=== PATIENT | female | born 1960 | race Caucasian/White ===

== ENCOUNTER 2018-02-15 15:01 | Emergency (ER) | payer MEDICARE, MEDICAID, OTHER ==
[~2018-02-15] VITALS: Ht 160 cm; Wt 90.0 kg
[~2018-02-15 15:01] MED LIST: ALBU8.5H8 INH; ASPI-611 PO; ATOR80TA PO; ESCI20TA PO; FAMO20TA41 PO; NABU500T2 PO; NYST15PO4 TOP; TOLT4CAP PO
[2018-02-15 15:07] VITALS: BP 173/97
== END 2018-02-15 15:36 | disposition home or self-care (01) ==
LOC: ER 15:02
DX: S50.861A Insect bite (nonvenomous) of right forearm, initial encounter (principal); I10 Essential (primary) hypertension; J45.909 Unspecified asthma, uncomplicated; K21.9 Gastro-esophageal reflux disease without esophagitis; E11.9 Type 2 diabetes mellitus without complications; F12.90 Cannabis use, unspecified, uncomplicated; Z90.49 Acquired absence of other specified parts of digestive tract; Z86.73 Personal history of transient ischemic attack (TIA), and cerebral infarction without residual deficits; Z88.0 Allergy status to penicillin; Z88.1 Allergy status to other antibiotic agents; Z79.82 Long term (current) use of aspirin; Z79.899 Other long term (current) drug therapy; W57.XXXA Bitten or stung by nonvenomous insect and other nonvenomous arthropods, initial encounter; Y93.89 Activity, other specified; Y92.89 Other specified places as the place of occurrence of the external cause; Y99.8 Other external cause status
CPT/HCPCS: 99281

== ENCOUNTER 2018-11-07 12:24 | Emergency (ER) | payer MEDICARE, MEDICAID, OTHER ==
[~2018-11-07] VITALS: Ht 160 cm; Wt 90.0 kg
[~2018-11-07 12:24] MED LIST changes: +INSU100V12 SQ
[2018-11-07 12:36] VITALS: BP 128/84
[2018-11-07 15:16] LABS: BASOPHILS % (AUTO) 0.2 % (0-1); EOSINOPHILS % (AUTO) 0.2 % (0-6); HEMATOCRIT 38.8 % (35.0-45.0); HEMOGLOBIN 12.5 g/dl (12.0-16.0); LYMPHOCYTES # (AUTO) 1.8 X10'3 (1.1-4.8); LYMPHOCYTES % (AUTO) 11.3 % (21-51); MEAN CORPUSCULAR HEMOGLOBIN 26.6 PG (27.0-31.0); MEAN CORPUSCULAR HGB CONC 32.3 g/dL (33.0-36.5); MEAN CORPUSCULAR VOLUME 82.5 FL (78-98); MEAN PLATELET VOLUME 7.3 FL (7.4-10.4); MONOCYTES # (AUTO) 0.5 X10'3 (0-0.9); MONOCYTES % (AUTO) 3.1 % (2-12); NEUTROPHILS # (AUTO) 13.8 X10'3 (1.8-7.7); NEUTROPHILS % (AUTO) 85.2 % (42-75); PLATELET COUNT 391 X10'3 (140-440); RED BLOOD COUNT 4.71 X10'6 (4.20-5.60); WHITE BLOOD COUNT 16.3 X10'3 (4.5-11.0)
[2018-11-07 15:31] LABS: ALANINE AMINOTRANSFERASE 23 U/L (12-78); ALBUMIN 3.3 G/DL (3.4-5.0); ALBUMIN/GLOBULIN RATIO 0.7 (1.1-1.5); ALKALINE PHOSPHATASE 119 IU/L (46-116); ANION GAP 16 (8-16); ASPARTATE AMINO TRANSFERASE 18 U/L (10-37); BILIRUBIN,TOTAL 0.2 MG/DL (0.1-1.0); BLOOD UREA NITROGEN 18 MG/DL (7-18); BUN/CREATININE RATIO 13.5 (6.6-38.0); CALCIUM 9.4 MG/DL (8.5-10.1); CHLORIDE 100 MMOL/L (99-107); CREATININE 1.33 MG/DL (0.40-0.90); GLUCOSE 217 MG/DL (70-104); POTASSIUM 4.1 MMOL/L (3.5-5.1); SODIUM 136 MMOL/L (135-145); TOTAL CARBON DIOXIDE 20.2 MMOL/L (24-32); TOTAL PROTEIN 7.8 G/DL (6.4-8.2); eGFR 41 ML/MIN
== END 2018-11-07 16:25 | disposition home or self-care (01) ==
LOC: ER 12:26
DX: R55 Syncope and collapse (principal); D72.829 Elevated white blood cell count, unspecified; E11.65 Type 2 diabetes mellitus with hyperglycemia; I10 Essential (primary) hypertension; J45.909 Unspecified asthma, uncomplicated; K21.9 Gastro-esophageal reflux disease without esophagitis; F32.9 Major depressive disorder, single episode, unspecified; F12.90 Cannabis use, unspecified, uncomplicated; Z88.0 Allergy status to penicillin; Z86.73 Personal history of transient ischemic attack (TIA), and cerebral infarction without residual deficits; Z90.49 Acquired absence of other specified parts of digestive tract; Z88.1 Allergy status to other antibiotic agents; Z79.82 Long term (current) use of aspirin; Z79.4 Long term (current) use of insulin; Z79.899 Other long term (current) drug therapy
CPT/HCPCS: 36415; 71045; 80053; 85025; 93005; 99284

== ENCOUNTER 2019-02-19 18:04 | Emergency (ER) | payer MEDICARE, MEDICAID, OTHER ==
[~2019-02-19] VITALS: Ht 160 cm; Wt 72.7 kg
--- NOTE | 2019-02-19 18:22 | NUR ---
PATIENT LIVES AT HOME WITH HER BROTHER WHO IS ALSO DEVELOPMENTALLY DELAYED AND THEY HAVE 24/7 CARE. HER CAREGIVER IS AT BEDSIDE
[2019-02-19 19:20] VITALS: BP 160/88
== END 2019-02-19 19:23 | disposition home or self-care (01) ==
LOC: ER 18:05
DX: T17.828A Food in other parts of respiratory tract causing other injury, initial encounter (principal); R62.50 Unspecified lack of expected normal physiological development in childhood; I10 Essential (primary) hypertension; K21.9 Gastro-esophageal reflux disease without esophagitis; E11.9 Type 2 diabetes mellitus without complications; F32.9 Major depressive disorder, single episode, unspecified; F12.90 Cannabis use, unspecified, uncomplicated; Z86.73 Personal history of transient ischemic attack (TIA), and cerebral infarction without residual deficits; Z90.49 Acquired absence of other specified parts of digestive tract; Z88.0 Allergy status to penicillin; Z88.1 Allergy status to other antibiotic agents; Z79.82 Long term (current) use of aspirin; Z79.899 Other long term (current) drug therapy; X58.XXXA Exposure to other specified factors, initial encounter; Y93.89 Activity, other specified; Y92.89 Other specified places as the place of occurrence of the external cause; Y99.8 Other external cause status
CPT/HCPCS: 71045; 99284

== ENCOUNTER 2020-06-14 20:56 | Inpatient (IN) | payer MEDICARE, MEDICAID, OTHER ==
[~2020-06-14] VITALS: Ht 157.5 cm; Wt 70.5 kg
[~2020-06-14 20:56] MED LIST changes: +NABU-134 PO; -NABU500T2 PO
[2020-06-14] MEDS ORDERED: normal saline 1000ml 1,000 ML IV ONE (21:25)
[2020-06-14 22:19] LABS: BASOPHILS % (AUTO) 0.1 % (0-1); EOSINOPHILS % (AUTO) 0 % (0-6); HEMATOCRIT 41.2 % (35.0-45.0); HEMOGLOBIN 13.2 g/dl (12.0-16.0); LYMPHOCYTES # (AUTO) 1.2 X10'3 (1.1-4.8); LYMPHOCYTES % (AUTO) 5.1 % (21-51); MEAN CORPUSCULAR HEMOGLOBIN 27.9 PG (27.0-31.0); MEAN CORPUSCULAR VOLUME 87.3 FL (78-98); MEAN PLATELET VOLUME 8.1 FL (7.4-10.4); MONOCYTES # (AUTO) 0.7 X10'3 (0-0.9); MONOCYTES % (AUTO) 3.1 % (2-12); NEUTROPHILS # (AUTO) 20.8 X10'3 (1.8-7.7); NEUTROPHILS % (AUTO) 91.7 % (42-75); PLATELET COUNT 309 X10'3 (140-440); RED BLOOD COUNT 4.73 X10'6 (4.20-5.60); RED CELL DISTRIBUTION WIDTH 15.3 % (11.5-14.5); WHITE BLOOD COUNT 22.7 X10'3 (4.5-11.0)
[2020-06-14 22:22] LABS: ALANINE AMINOTRANSFERASE 20 U/L (12-78); ALBUMIN 3.3 G/DL (3.4-5.0); ALBUMIN/GLOBULIN RATIO 0.8 (1.1-1.5); ALKALINE PHOSPHATASE 103 IU/L (46-116); ANION GAP 15 (8-16); ASPARTATE AMINO TRANSFERASE 16 U/L (10-37); BILIRUBIN,TOTAL 0.3 MG/DL (0.1-1.0); BLOOD UREA NITROGEN 25 MG/DL (7-18); BUN/CREATININE RATIO 20.3 (6.6-38.0); CALCIUM 9.2 MG/DL (8.5-10.1); CHLORIDE 102 MMOL/L (99-107); CREATININE 1.23 MG/DL (0.40-0.90); GLUCOSE 234 MG/DL (70-104); POTASSIUM 4.3 MMOL/L (3.5-5.1); SODIUM 139 MMOL/L (135-145); TOTAL CARBON DIOXIDE 22.1 MMOL/L (24-32); TOTAL PROTEIN 7.7 G/DL (6.4-8.2); eGFR 45 ML/MIN
[2020-06-14] MEDS ORDERED: normal saline 1000ML IV soln IV ONE (22:45)
[2020-06-14 23:03] LABS: PLATELET ESTIMATE NORMAL; TOTAL CELLS COUNTED 100
[2020-06-14] MEDS ORDERED: magnesium Cl slow-release 64mg tablet PO PRN (23:10)
[2020-06-14] MEDS ORDERED: insulin Lispro (HumaLOG) vial - multi-dose SQ SCH (23:10)
[2020-06-14] MEDS ORDERED: dextrose ORAL solution 15 GM/59 ML bottle PO PRN ×2 (23:10)
[2020-06-14] MEDS ORDERED: mag hydrox/Alum hydrox/simeth 30ml oral suspension PO PRN (23:10)
[2020-06-14] MEDS ORDERED: magnesium 2GM in 50ml NS 50 ML IV PRN (23:10)
[2020-06-14] MEDS ORDERED: glucagon, human recombinant 1mg kit SUBCUT PRN (23:10)
[2020-06-14] MEDS ORDERED: MESSAGE TO PHARMACY PO ONE (23:10)
[2020-06-14] MEDS ORDERED: potassium Cl 20 mEq SR tablet PO PRN ×2 (23:10)
[2020-06-14] MEDS ORDERED: potassium CL 10mEq/100ml bag 100 ML IV PRN ×2 (23:10)
[2020-06-14] MEDS ORDERED: dextrose 50%-water 50ml dispensing syringe IV PRN ×2 (23:10)
[2020-06-14] MEDS ORDERED: magnesium 4gm in 100ml NS 100 ML IV PRN (23:10)
[2020-06-14] MEDS ORDERED: ondansetron/PF 4mg/2ml inj IV PRN (23:10)
[2020-06-14] MEDS ORDERED: magnesium hydroxide 30ml (MOM) UD suspension PO PRN (23:10)
[2020-06-14] MEDS ORDERED: acetaminophen 325mg tablet PO PRN ×2 (23:10)
[2020-06-14] MEDS ORDERED: LORazepam 2 mg/ml vial IV ONE (23:20)
[2020-06-14] MEDS ORDERED: azithromycin/NS 500mg/250ml 250 ML IV ONE (23:30)
[2020-06-14] MEDS ORDERED: LORazepam 0.5 MG tablet PO PRN (23:30)
[2020-06-14] MEDS ORDERED: CefTRIAXone/D5W-Rocephin 1gm 50 ML IV ONE (23:30)
[2020-06-15] MEDS: normal saline 1000ml 1,000 ML IV SCH ×3 (00:09→16:59)
[2020-06-15] MEDS: enoxaparin 60mg/0.6ml syringe SUBCUT SCH ×2 (03:41→07:19)
[2020-06-15 05:25] VITALS: BP 110/89
[2020-06-15] MEDS: docusate sod 100mg capsule PO SCH ×2 (07:19→21:07)
[2020-06-15] MEDS: azithromycin/NS 500mg/250ml 250 ML IV SCH (07:19)
[2020-06-15 07:31] VITALS: BP 150/67
[2020-06-15 07:39] LABS: BASOPHILS # (AUTO) 0.1 X10'3 (0-0.2); BASOPHILS % (AUTO) 0.6 % (0-1); EOSINOPHILS % (AUTO) 0.1 % (0-6); HEMATOCRIT 32.9 % (35.0-45.0); HEMOGLOBIN 10.7 g/dl (12.0-16.0); LYMPHOCYTES # (AUTO) 3.3 X10'3 (1.1-4.8); LYMPHOCYTES % (AUTO) 17.1 % (21-51); MEAN CORPUSCULAR HGB CONC 32.5 g/dL (33.0-36.5); MEAN CORPUSCULAR VOLUME 89.3 FL (78-98); MEAN PLATELET VOLUME 7.9 FL (7.4-10.4); MONOCYTES # (AUTO) 0.8 X10'3 (0-0.9); MONOCYTES % (AUTO) 4.1 % (2-12); NEUTROPHILS # (AUTO) 15.1 X10'3 (1.8-7.7); NEUTROPHILS % (AUTO) 78.1 % (42-75); PLATELET COUNT 234 X10'3 (140-440); RED BLOOD COUNT 3.69 X10'6 (4.20-5.60); RED CELL DISTRIBUTION WIDTH 15.1 % (11.5-14.5); WHITE BLOOD COUNT 19.3 X10'3 (4.5-11.0)
[2020-06-15] MEDS: K and/or MAG REPLACEMENT MC SCH ×2 (08:00→20:00)
[2020-06-15 08:05] LABS: ALANINE AMINOTRANSFERASE 20 U/L (12-78); ALBUMIN 2.6 G/DL (3.4-5.0); ALBUMIN/GLOBULIN RATIO 0.7 (1.1-1.5); ALKALINE PHOSPHATASE 84 IU/L (46-116); ANION GAP 10 (8-16); ASPARTATE AMINO TRANSFERASE 17 U/L (10-37); BILIRUBIN,TOTAL 0.2 MG/DL (0.1-1.0); BLOOD UREA NITROGEN 17 MG/DL (7-18); BUN/CREATININE RATIO 19.5 (6.6-38.0); CALCIUM 9.2 MG/DL (8.5-10.1); CHLORIDE 115 MMOL/L (99-107); CREATININE 0.87 MG/DL (0.40-0.90); GLUCOSE 105 MG/DL (70-104); MAGNESIUM 1.5 MG/DL (1.5-2.4); POTASSIUM 4.1 MMOL/L (3.5-5.1); SODIUM 148 MMOL/L (135-145); TOTAL CARBON DIOXIDE 22.6 MMOL/L (24-32); TOTAL PROTEIN 6.2 G/DL (6.4-8.2); eGFR 66 ML/MIN
[2020-06-15 11:00] VITALS: BP 131/53
[2020-06-15] MEDS ORDERED: METO10TA3 PO (12:52)
[2020-06-15] MEDS ORDERED: INSU100C4 SQ (12:52)
[2020-06-15] MEDS ORDERED: SITA100T11 PO (12:52)
[2020-06-15] MEDS ORDERED: INSU100I25 SQ (12:52)
[2020-06-15] MEDS ORDERED: NOVLG SQ (12:52)
[2020-06-15] MEDS ORDERED: LEVE500T PO (12:52)
[2020-06-15] MEDS ORDERED: CLOP75TA35 PO (12:52)
[2020-06-15] MEDS ORDERED: LISI-600 PO (12:52)
[2020-06-15] MEDS ORDERED: ASPI-1397 PO (12:52)
[2020-06-15] MEDS ORDERED: ESCI20TA45 PO (12:52)
[2020-06-15] MEDS ORDERED: MULT1TAB70 PO (12:52)
[2020-06-15] MEDS ORDERED: PANT40TA54 PO (12:52)
[2020-06-15] MEDS ORDERED: ATOR20TA66 PO (12:52)
[2020-06-15] MEDS ORDERED: METF-950 PO (12:52)
[2020-06-15] MEDS: CefTRIAXone/D5W-Rocephin 1gm 50 ML IV SCH (15:27)
[2020-06-15 16:01] LABS: CLARITY,URINE CLEAR (Clear); COLOR,URINE STRAW (Yellow); GLUCOSE, URINE NEGATIVE (Neg); KETONES,URINE NEGATIVE (Neg); LEUKOCYTE ESTERASE ,URINE TRACE (Neg); NITRITES, URINE NEGATIVE (Neg); OCCULT BLOOD,URINE MODERATE (Neg); PH,URINE 5.5 (4.8-8.0); PROTEIN,URINE NEGATIVE (Neg); UROBILINOGEN,URINE 0.2 E.U/dL (0.2-1.0)
[2020-06-15 16:05] LABS: UA COLLECTION TYPE NON-SPECIFIED
[2020-06-15 16:06] LABS: BACTERIA,URINE NONE SEEN /HPF (Neg); MUCUS STRANDS FEW /LPF (Neg); RBC,URINE 0-2 /HPF (0-2); SQUAMOUS EPITHELIAL CELL,UR NONE SEEN /LPF (FEW); WBC,URINE 0-4 /HPF (0-4)
[2020-06-15] MEDS: metoclopramide 10mg tablet PO SCH ×2 (16:59→21:07)
--- NOTE | 2020-06-15 18:30 | NUR ---
Patient in room [facility]. I have received report from KAILA FRAZIER and had the opportunity to ask questions and assume patient care. Addendum: 06/15/20 at 1831 by Mariajose Berger RN Amended: Links added.
--- NOTE | 2020-06-15 18:38 | NUR ---
Problems reprioritized. Patient report given, questions answered & plan of care reviewed with STEVEN FRAZIER.
[2020-06-15 19:00] VITALS: BP 138/76
--- NOTE | 2020-06-15 19:00 | NUR ---
pt inc of urine skin care done with lien change and positioned to comfort.
[2020-06-15] MEDS: lisinopril 20mg tablet PO SCH (20:59)
[2020-06-15] MEDS: lactobacillus rhamnosus 10,000 MMU CELLS/CAPSULE PO SCH (21:00)
[2020-06-15] MEDS ORDERED: atorvastatin 20mg tablet PO SCH (21:00)
[2020-06-15] MEDS ORDERED: insulin glargine (Lantus) pen - multi-dose SQ SCH (21:00)
--- NOTE | 2020-06-15 21:00 | NUR ---
pt used bedpan then given hs medications skin care done then repositioned in bed to comfort.
[2020-06-15] MEDS: levetiracetam 250mg tablet PO SCH (21:07)
[2020-06-15] MEDS: heparin, porcine 5000 units/ml vial SQ SCH (21:08)
--- NOTE | 2020-06-15 23:15 | NUR ---
awoke used the bedpan and vitals vss. no complaints.
[2020-06-16] VITALS: BP 114/56
--- NOTE | 2020-06-16 01:00 | NUR ---
resting eyes closed without s&s of distress at this time.
[2020-06-16] MEDS: normal saline 1000ml 1,000 ML IV SCH (01:22)
--- NOTE | 2020-06-16 03:50 | NUR ---
pt awoke inc of urine skin care done with complete bed change. repositioned up in bed. tolerated well.
[2020-06-16 05:44] LABS: BASOPHILS % (AUTO) 0.5 % (0-1); EOSINOPHILS # (AUTO) 0.1 X10'3 (0-0.9); EOSINOPHILS % (AUTO) 1.3 % (0-6); HEMATOCRIT 30.6 % (35.0-45.0); HEMOGLOBIN 10.1 g/dl (12.0-16.0); LYMPHOCYTES # (AUTO) 2.6 X10'3 (1.1-4.8); LYMPHOCYTES % (AUTO) 26.3 % (21-51); MEAN CORPUSCULAR HEMOGLOBIN 29.2 PG (27.0-31.0); MEAN CORPUSCULAR HGB CONC 32.9 g/dL (33.0-36.5); MEAN CORPUSCULAR VOLUME 88.8 FL (78-98); MEAN PLATELET VOLUME 7.8 FL (7.4-10.4); MONOCYTES # (AUTO) 0.4 X10'3 (0-0.9); MONOCYTES % (AUTO) 3.9 % (2-12); NEUTROPHILS # (AUTO) 6.8 X10'3 (1.8-7.7); PLATELET COUNT 207 X10'3 (140-440); RED BLOOD COUNT 3.45 X10'6 (4.20-5.60); RED CELL DISTRIBUTION WIDTH 15.1 % (11.5-14.5); WHITE BLOOD COUNT 10.1 X10'3 (4.5-11.0)
--- NOTE | 2020-06-16 06:42 | NUR ---
Patient in room [facility]. I have received report from Mariajose FRAZIER and had the opportunity to ask questions and assume patient care.
[2020-06-16 06:50] LABS: ALANINE AMINOTRANSFERASE 19 U/L (12-78); ALBUMIN 2.7 G/DL (3.4-5.0); ALBUMIN/GLOBULIN RATIO 0.8 (1.1-1.5); ALKALINE PHOSPHATASE 74 IU/L (46-116); ANION GAP 8 (8-16); ASPARTATE AMINO TRANSFERASE 19 U/L (10-37); BILIRUBIN,TOTAL 0.3 MG/DL (0.1-1.0); BLOOD UREA NITROGEN 10 MG/DL (7-18); BUN/CREATININE RATIO 13.7 (6.6-38.0); CALCIUM 8.2 MG/DL (8.5-10.1); CHLORIDE 113 MMOL/L (99-107); CREATININE 0.73 MG/DL (0.40-0.90); GLUCOSE 108 MG/DL (70-104); MAGNESIUM 1.6 MG/DL (1.5-2.4); POTASSIUM 3.6 MMOL/L (3.5-5.1); SODIUM 146 MMOL/L (135-145); TOTAL CARBON DIOXIDE 25.3 MMOL/L (24-32); TOTAL PROTEIN 6.3 G/DL (6.4-8.2); eGFR 81 ML/MIN
[2020-06-16 07:00] VITALS: BP 144/79
[2020-06-16] MEDS: metoclopramide 10mg tablet PO SCH ×2 (07:16→12:24)
[2020-06-16] MEDS ORDERED: ESCITALOPRAM OXALATE 5 MG TABLET PO SCH (08:00)
[2020-06-16] MEDS ORDERED: multivitamins, therapeutics tablet PO SCH (08:00)
[2020-06-16] MEDS: K and/or MAG REPLACEMENT MC SCH (08:00)
[2020-06-16] MEDS ORDERED: clopidogrel 75mg tablet PO SCH (08:00)
[2020-06-16] MEDS ORDERED: pantoprazole 40mg Tablet.DR PO SCH (08:00)
[2020-06-16] MEDS ORDERED: aspirin 81mg tablet.DR PO SCH (08:00)
[2020-06-16] MEDS: CefTRIAXone/D5W-Rocephin 1gm 50 ML IV SCH (08:24)
[2020-06-16] MEDS: lactobacillus rhamnosus 10,000 MMU CELLS/CAPSULE PO SCH (08:24)
[2020-06-16] MEDS: levetiracetam 250mg tablet PO SCH (08:25)
[2020-06-16] MEDS: docusate sod 100mg capsule PO SCH (08:25)
[2020-06-16] MEDS: lisinopril 20mg tablet PO SCH (08:26)
[2020-06-16] MEDS: heparin, porcine 5000 units/ml vial SQ SCH (08:26)
[2020-06-16] MEDS: azithromycin/NS 500mg/250ml 250 ML IV SCH (09:58)
[2020-06-16 12:00] VITALS: BP 138/56
[2020-06-16] MEDS ORDERED: ALBU8.5H8 INH (13:28)
[2020-06-16] MEDS ORDERED: AZIT500T9 PO (13:28)
[2020-06-16] MEDS ORDERED: CEFD300C3 PO (13:28)
--- NOTE | 2020-06-16 15:48 | NUR ---
DM Consult: A1C less than 7 and not appropriate for DM ed at this time. Addendum: 06/16/20 at [address] Amended: Links added.
--- NOTE | 2020-06-16 17:00 | NUR ---
Pt stable and appropriate for D/C. PIV d/c'd, canula intact. Reviewed with patient's home visit field care manager all d/c instructions and meds, with cg given opportunity to ask questions, answers provided and cg verbalizing understanding. CG to phone PCP with any questions/concerns, s/sx of complications/infection or return pt to nearest ED. Pt escorted to front lobby via w/c, escorted by hospital staff with all personal belongings. Driven home in private vehicle driven by caregiver.
== END 2020-06-16 17:35 | disposition home health service (06) | DRG 871 ==
LOC: ER 20:57 → ED HOLD 23:10 → SUR 3N 06-15 00:45
PROVIDERS: ADMIT Family Medicine; ATTEND Family Medicine
DX: A41.9 Sepsis, unspecified organism (principal); J69.0 Pneumonitis due to inhalation of food and vomit; I21.A1 Myocardial infarction type 2; N17.9 Acute kidney failure, unspecified; D64.9 Anemia, unspecified; E11.9 Type 2 diabetes mellitus without complications; E78.5 Hyperlipidemia, unspecified; F12.90 Cannabis use, unspecified, uncomplicated; F41.9 Anxiety disorder, unspecified; I95.9 Hypotension, unspecified; I10 Essential (primary) hypertension; I25.10 Atherosclerotic heart disease of native coronary artery without angina pectoris; J45.909 Unspecified asthma, uncomplicated; Z20.828 Contact with and (suspected) exposure to other viral communicable diseases; F32.9 Major depressive disorder, single episode, unspecified; K21.9 Gastro-esophageal reflux disease without esophagitis; Z86.73 Personal history of transient ischemic attack (TIA), and cerebral infarction without residual deficits; Z88.0 Allergy status to penicillin; Z88.8 Allergy status to other drugs, medicaments and biological substances; Z90.49 Acquired absence of other specified parts of digestive tract; Z79.899 Other long term (current) drug therapy; Z79.82 Long term (current) use of aspirin; Z87.440 Personal history of urinary (tract) infections
CPT/HCPCS: 36415; 71045; 76937; 80053; 81001; 82948; 83036; 83605; 83735; 83880; 84145; 84484; 85007; 85025; 87040; 87081; 87088; 87635; 93005; 96365; 99285; C9803; G0378; J0456; J0696; J1644; J1650; J1815; J2060; J7030; J8597

== ENCOUNTER 2020-07-24 15:31 | Outpatient (CLI) | payer MEDICARE, MEDICAID, OTHER ==
[~2020-07-24 15:31] MED LIST changes: +ASPI-1397 PO; -ASPI-611 PO; +ATOR20TA66 PO; -ATOR80TA PO; +AZIT500T9 PO; +CLOP75TA34 PO; -ESCI20TA PO; +ESCI20TA56 PO; -FAMO20TA41 PO; +INSU100C4 SQ; +INSU100I25 SQ; -INSU100V12 SQ; +LEVE500T PO; +LISI-600 PO; +METF-950 PO; +METO10TA3 PO; +MULT1TAB70 PO; -NABU-134 PO; +NOVLG SQ; -NYST15PO4 TOP; +PANT40TA54 PO; +SITA100T11 PO; -TOLT4CAP PO
== END 2020-07-24 23:59 | disposition home or self-care (01) ==
LOC: RAD 15:31
PROVIDERS: ATTEND Family Medicine
DX: R13.12 Dysphagia, oropharyngeal phase (principal); I69.391 Dysphagia following cerebral infarction; I69.322 Dysarthria following cerebral infarction
CPT/HCPCS: 74230

== ENCOUNTER 2023-06-14 11:29 | Emergency (ER) | payer MEDICARE, MEDICAID ==
[~2023-06-14] VITALS: Ht 162.6 cm; Wt 70.5 kg
[~2023-06-14 11:29] MED LIST changes: -ALBU8.5H8 INH; -ASPI-1397 PO; +ASPI-611 PO; -AZIT500T9 PO; +BENZ1TAB78 PO; +CLOP75TA33 PO; -CLOP75TA34 PO; -ESCI20TA56 PO; -INSU100C4 SQ; -INSU100I25 SQ; -LISI-600 PO; +LISI20TA28 PO; -METF-950 PO; -METO10TA3 PO; +METO200T49 PO; -MULT1TAB70 PO; +MULT400T15 PO; -NOVLG SQ; +PANT-47 PO; -PANT40TA54 PO; +QUET100T34 PO; +QUET50TA24 PO; -SITA100T11 PO; +SITA50TA PO
[2023-06-14 12:36] LABS: BASOPHILS % (AUTO) 0.4 % (0-1); EOSINOPHILS # (AUTO) 0.1 X10'3 (0-0.9); EOSINOPHILS % (AUTO) 1.1 % (0-6); HEMATOCRIT 41.1 % (35.0-45.0); HEMOGLOBIN 13.5 g/dl (12.0-16.0); LYMPHOCYTES # (AUTO) 1.6 X10'3 (1.1-4.8); LYMPHOCYTES % (AUTO) 14.5 % (21-51); MEAN CORPUSCULAR HEMOGLOBIN 29.9 PG (27.0-31.0); MEAN CORPUSCULAR HGB CONC 32.8 g/dL (33.0-36.5); MEAN CORPUSCULAR VOLUME 91.2 FL (78-98); MEAN PLATELET VOLUME 7.6 FL (7.4-10.4); MONOCYTES # (AUTO) 0.5 X10'3 (0-0.9); MONOCYTES % (AUTO) 4.3 % (2-12); NEUTROPHILS # (AUTO) 8.8 X10'3 (1.8-7.7); NEUTROPHILS % (AUTO) 79.7 % (42-75); PLATELET COUNT 232 X10'3 (140-440); RED BLOOD COUNT 4.51 X10'6 (4.20-5.60); RED CELL DISTRIBUTION WIDTH 13.8 % (11.5-14.5)
[2023-06-14 12:51] LABS: ALANINE AMINOTRANSFERASE 23 U/L (12-78); ALBUMIN/GLOBULIN RATIO 0.7 (1.1-1.5); ALKALINE PHOSPHATASE 123 IU/L (46-116); ANION GAP 8 (8-16); ASPARTATE AMINO TRANSFERASE 19 U/L (10-37); BILIRUBIN,TOTAL 0.3 MG/DL (0.1-1.0); BLOOD UREA NITROGEN 34 MG/DL (7-18); BUN/CREATININE RATIO 26.4 (10.0-20.0); CALCIUM 9.2 MG/DL (8.5-10.1); CHLORIDE 100 MMOL/L (99-107); CREATININE 1.29 MG/DL (0.40-0.90); GLUCOSE 175 MG/DL (70-104); POTASSIUM 4.5 MMOL/L (3.5-5.1); SODIUM 133 MMOL/L (135-145); TOTAL CARBON DIOXIDE 24.8 MMOL/L (24-32); TOTAL PROTEIN 7.6 G/DL (6.4-8.2); eCRCL 39 ML/MIN; eGFR 42 ML/MIN
[2023-06-14 12:59] LABS: PRO BRAIN NATRIURETIC PEPTIDE 145 PG/ML (0-125)
[2023-06-14 20:44] LABS: BILIRUBIN,URINE NEGATIVE (Neg); CLARITY,URINE CLEAR (Clear); COLOR,URINE YELLOW (Yellow); GLUCOSE, URINE NEGATIVE (Neg); KETONES,URINE NEGATIVE (Neg); LEUKOCYTE ESTERASE ,URINE NEGATIVE (Neg); NITRITES, URINE NEGATIVE (Neg); OCCULT BLOOD,URINE NEGATIVE (Neg); PROTEIN,URINE NEGATIVE (Neg); UROBILINOGEN,URINE 0.2 E.U/dL (0.2-1.0)
[2023-06-14 20:50] LABS: UA COLLECTION TYPE NON-SPECIFIED
[2023-06-14] MEDS ORDERED: normal saline 1000ML IV soln IVB ONE (21:30)
[2023-06-14 23:32] VITALS: BP 139/73; PULSE 80; RESP 18; TEMP 98.5; O2SAT 100
== END 2023-06-14 23:35 | disposition home or self-care (01) ==
LOC: ER 11:30
DX: E86.0 Dehydration (principal); R41.0 Disorientation, unspecified; E11.65 Type 2 diabetes mellitus with hyperglycemia; J45.909 Unspecified asthma, uncomplicated; G25.9 Extrapyramidal and movement disorder, unspecified; I10 Essential (primary) hypertension; F12.90 Cannabis use, unspecified, uncomplicated; Z86.73 Personal history of transient ischemic attack (TIA), and cerebral infarction without residual deficits; Z90.49 Acquired absence of other specified parts of digestive tract; Z88.0 Allergy status to penicillin; Z88.1 Allergy status to other antibiotic agents; Z79.82 Long term (current) use of aspirin; Z79.899 Other long term (current) drug therapy
CPT/HCPCS: 36415; 70450; 71045; 80053; 81003; 82948; 83880; 84484; 85025; 93005; 96360; 99285; J7030; C1758

== ENCOUNTER 2024-08-04 10:06 | Outpatient (CLI) | payer MEDICARE, MEDICAID ==
[~2024-08-04 10:06] MED LIST changes: +METO200T37 PO; -METO200T49 PO
== END 2024-08-04 23:59 | disposition home or self-care (01) ==
LOC: RAD 10:06
PROVIDERS: ATTEND Family Medicine
DX: R13.10 Dysphagia, unspecified (principal); R47.81 Slurred speech
CPT/HCPCS: 74230

== ENCOUNTER 2024-11-21 09:31 | Emergency (ER) | payer MEDICARE, MEDICAID ==
[~2024-11-21] VITALS: Ht 162.6 cm; Wt 65.4 kg
[2024-11-21 10:39] LABS: BILIRUBIN,URINE NEGATIVE (Neg); CLARITY,URINE CLEAR (Clear); COLOR,URINE YELLOW (Yellow); GLUCOSE, URINE NEGATIVE (Neg); KETONES,URINE NEGATIVE (Neg); LEUKOCYTE ESTERASE ,URINE NEGATIVE (Neg); NITRITES, URINE NEGATIVE (Neg); OCCULT BLOOD,URINE NEGATIVE (Neg); PROTEIN,URINE NEGATIVE (Neg); UROBILINOGEN,URINE 0.2 E.U/dL (0.2-1.0)
[2024-11-21 10:40] LABS: UA COLLECTION TYPE CLN CATCH MIDSTREAM
--- NOTE | 2024-11-21 10:47 | ELECTROCARDIOGRAPH REPORT ---
[facility] Test Date: 2024-11-21 Test Time: 09:39:40 Pat Name: PAMELA UNGER Department: EMERGENCY ROOM Room: Gender: F Payroll Manager: JIMMY : 1960 Requested By: ROSAURA SARAVIA Order Number: [id number] Reading MD: Measurements Intervals Penelope Rate: 67 P: 18 SC: 128 QRS: 46 QRSD: 99 T: 62 QT: 444 QTc: 469 Interpretive Statements Sinus rhythm Probable left atrial enlargement Please click the below link to view image of tracing.
--- NOTE | 2024-11-21 10:55 | RADIOLOGY REPORT ---
CHEST RADIOGRAPH Indication: SOB Technique: Single frontal view of the chest was obtained Comparison: DI CHEST,SINGLE VIEW on DOS: 06/14/23 FINDINGS: Lines and Tubes: None Lungs: No focal consolidation. Pleura: No effusion. No pneumothorax. Cardiomediastinal contours: Unremarkable Bones: No acute osseous abnormality. IMPRESSION: 1. No acute cardiopulmonary disease.
[2024-11-21 11:12] LABS: BASOPHILS % (AUTO) 0.3 % (0-1); EOSINOPHILS # (AUTO) 0.2 X10'3 (0-0.9); EOSINOPHILS % (AUTO) 1.7 % (0-6); HEMATOCRIT 41.9 % (35.0-45.0); LYMPHOCYTES # (AUTO) 1.5 X10'3 (1.1-4.8); LYMPHOCYTES % (AUTO) 14.7 % (21-51); MEAN CORPUSCULAR HEMOGLOBIN 29.4 PG (27.0-31.0); MEAN CORPUSCULAR HGB CONC 33.4 g/dL (33.0-36.5); MEAN CORPUSCULAR VOLUME 87.8 FL (78-98); MEAN PLATELET VOLUME 6.9 FL (7.4-10.4); MONOCYTES # (AUTO) 0.3 X10'3 (0-0.9); MONOCYTES % (AUTO) 3.3 % (2-12); NEUTROPHILS # (AUTO) 8.4 X10'3 (1.8-7.7); PLATELET COUNT 253 X10'3 (140-440); RED BLOOD COUNT 4.77 X10'6 (4.20-5.60); RED CELL DISTRIBUTION WIDTH 13.4 % (11.5-14.5); WHITE BLOOD COUNT 10.5 X10'3 (4.5-11.0)
[2024-11-21 11:32] LABS: ALANINE AMINOTRANSFERASE 43 U/L (12-78); ALBUMIN 2.9 G/DL (3.4-5.0); ALBUMIN/GLOBULIN RATIO 0.7 (1.1-1.5); ALKALINE PHOSPHATASE 115 IU/L (46-116); ANION GAP 8 (8-16); ASPARTATE AMINO TRANSFERASE 24 U/L (10-37); BILIRUBIN,TOTAL 0.2 MG/DL (0.1-1.0); BLOOD UREA NITROGEN 25 MG/DL (7-18); BUN/CREATININE RATIO 29.4 (10.0-20.0); CALCIUM 8.6 MG/DL (8.5-10.1); CHLORIDE 104 MMOL/L (99-107); CREATININE 0.85 MG/DL (0.40-0.90); GLUCOSE 149 MG/DL (70-104); POTASSIUM 4.2 MMOL/L (3.5-5.1); SODIUM 140 MMOL/L (135-145); TOTAL CARBON DIOXIDE 27.9 MMOL/L (24-32); TOTAL PROTEIN 6.8 G/DL (6.4-8.2); eCRCL 57 ML/MIN; eGFR 67 ML/MIN
--- NOTE | 2024-11-21 11:56 | Physician Documentation ---
History of Present Illness ~ Chief Complaint: Syncope Stated Complaint: SYNCOPE Time Seen by MD: 09:36 Primary Medical Doctor: JUAN Mode of Arrival: EMS HPI 64 year old developmentally delayed female sustained a syncopal episode on the toilet after some loose stool. This is common for her but lasted longer than normal per caregiver. No reported fevers, N/V/D, no head strike. Medication Reconciliation Allergies: Coded Allergies: Penicillins (Verified Allergy, Intermediate, 12/27/23) doxycycline (Unverified Allergy, Unknown, 06/14/23) Scheduled Aspirin (Aspir 81), 1 TAB PO DAILY, (Reported) Atorvastatin Calcium (Atorvastatin Calcium), 1 TAB PO HS, (Reported) Benztropine Mesylate (Benztropine Mesylate), 1 TAB PO QPM, (Reported) Clopidogrel Bisulfate (Clopidogrel), 1 TAB PO DAILY, (Reported) Levetiracetam (Levetiracetam), 1 TAB PO BID, (Reported) Lisinopril (Lisinopril), 1 TAB PO BID@0800,1700, (Reported) Metoprolol Succinate (Metoprolol Succinate), 1 TAB PO DAILY, (Reported) Multivitamin with Folic Acid (Tab-A-Ria Tablet), 1 TAB PO DAILY, (Reported) Pantoprazole Sodium (PROTONIX tablet), 1 TAB PO DAILY, (Reported) Quetiapine Fumarate (Quetiapine Fumarate), 150 MG PO HS, (Reported) Quetiapine Fumarate (Quetiapine Fumarate), 1 TAB PO QAM, (Reported) Sitagliptin Phosphate (Januvia), 1 TAB PO DAILY, (Reported) Past Medical History Past Medical History: CVA/TIA/Stroke, Hypertension, Asthma, GERD, UTI, Diabetes, Depression Past Surgical History: cholecystectomy Alcohol Use: None Drug Use: marijuana Lives with: Family Lives In: Home Review of Systems All Other Systems at this time: Reviewed and Negative Physical Exam Vital Signs: RN Vital Signs have been reviewed: Yes, Temperature: 97.8, Source: Oral, Heart Rate: 68, Respiratory Rate: 14, BP: 123/68, Pulse Oximetry: 97, Weight: 65.400 Physical Exam HEENT: PERRL, moist oral mucosa, EOMI Pulmonary: No respiratory distress Cardiac: RRR, no murmur, rub or gallop GI: nondistended, soft, nontender, no guarding, no rebound MSK: no deformity Skin: w/d/i, no rash Neuro: alert, nonfocal but with baseline contractures, nonverbal Progress Results/Orders Results/Orders Orders - ROSAURA SARAVIA MD Chest,Single View (11/21/24 10:18) Completed Orders - ROSAURA SARAVIA MD Cbc/Diff (11/21/24 09:48) CMP (11/21/24 09:48) Urinalysis, Cult If Indicated (11/21/24 09:48) Chest,Single View (11/21/24 10:18) Electrocardiogram (11/21/24 09:39) Vital Signs 11/21/24 11/21/24 11/21/24 11/21/24 09:37 09:55 09:59 11:15 Temp 97.8 97.8 97.8 Pulse 66 69 68 Resp 16 18 18 14 B/P (MAP) 123/71 112/57 (75) 123/68 (86) Pulse Ox 97 98 97 Laboratory Tests Test 11/21/24 10:20 11/21/24 11:01 Urine Specimen Description Cln catch midstream Urine Color Yellow Urine Clarity Clear Urine pH 6.0 Urine Specific [place] 1.010 Urine Protein Negative Urine Glucose (UA) Negative Urine Ketones Negative Urine Occult Blood Negative Urine Nitrite Negative Urine Bilirubin Negative Urine Urobilinogen 0.2 Urine Leukocyte Esterase Negative Urine Culture Indicated Not ind Volume Urine Centrifuged 10 ml Urine Comment White Blood Count 10.5 Red Blood Count 4.77 Hemoglobin 14.0 Hematocrit 41.9 Mean Corpuscular Volume 87.8 Mean Corpuscular Hemoglobin 29.4 Mean Corpuscular Hemoglobin Concent 33.4 Red Cell Distribution Width 13.4 Platelet Count 253 Mean Platelet Volume 6.9 L Neutrophils (%) (Auto) 80.0 H Lymphocytes (%) (Auto) 14.7 L Monocytes (%) (Auto) 3.3 Eosinophils (%) (Auto) 1.7 Basophils (%) (Auto) 0.3 Neutrophils # (Auto) 8.4 H Lymphocytes # (Auto) 1.5 Monocytes # (Auto) 0.3 Eosinophils # (Auto) 0.2 Basophils # (Auto) 0.0 CBC Comment Sodium Level 140 Potassium Level 4.2 Chloride Level 104 Carbon Dioxide Level 27.9 Anion Gap 8 Blood Urea Nitrogen 25 H Creatinine 0.85 Estimated GFR/1.73 m2 67 BUN/Creatinine Ratio 29.4 H Glucose Level 149 H Calcium Level 8.6 Total Bilirubin 0.2 Aspartate Amino Transf (AST/SGOT) 24 Alanine Aminotransferase (ALT/SGPT) 43 Alkaline Phosphatase 115 Total Protein 6.8 Albumin 2.9 L Globulin 3.9 Albumin/Globulin Ratio 0.7 L Chemistry Comments EKG/XRAY/CT/US/VASC/MRI EKG : Indication: syncope EKG Rate: 67 EKG: NSR EKG Blocks: none Additional Comment my interpretation: NSR, no STEMI criteria Chest X-Ray : Interpreted By: self Views: 1 VIEW Indication: syncope Lungs: normal Mediastinum: normal Ribs/Bones: normal Abdomen: normal Impression: no acute disease Medical Decision Making Findings 64 year old developmentally delayed female s/p syncopal event. Exam and workup benign, no evidence of acute etiologies of syncope that require intervention. Stable on telemonitor for several hours. Will discharge with caregiver. Differential Dx:Considerations: Include: anemia, dehydration, dysrhythmia, encephalopathy, hypoglycemia, pulmonary embolus, vestibular neuronitis Departure Disposition: 01 HOME / SELF CARE / HOMELESS Impression: Primary Impression: Syncope Condition: Stable Discharge Instructions: Syncope, Adult Referrals: NO PRIMARY CARE PROVIDER (PCP) Education Educated: Patient, Other Educated regarding: diagnosis, treatment, prognosis, need for follow up Signature Scribe Signature: . Attestation: . ROSAURA SARAVIA MD November 21, 2024 11:56
[2024-11-21 12:40] VITALS: BP 103/78; PULSE 76; RESP 18; TEMP 97.8; O2SAT 99
== END 2024-11-21 12:42 | disposition home or self-care (01) ==
LOC: ER 09:32
DX: R55 Syncope and collapse (principal); E11.9 Type 2 diabetes mellitus without complications; I10 Essential (primary) hypertension; J45.909 Unspecified asthma, uncomplicated; F32.A Depression, unspecified; F12.90 Cannabis use, unspecified, uncomplicated; Z86.73 Personal history of transient ischemic attack (TIA), and cerebral infarction without residual deficits; Z88.0 Allergy status to penicillin; Z88.1 Allergy status to other antibiotic agents; Z88.8 Allergy status to other drugs, medicaments and biological substances; Z90.49 Acquired absence of other specified parts of digestive tract; Z79.82 Long term (current) use of aspirin
CPT/HCPCS: 36415; 71045; 80053; 81003; 85025; 93005; 99285; C1758